=== PATIENT | male | born 1975 | race American Indian/Alaskan Native ===

== ENCOUNTER 2018-02-01 16:29 | Emergency (ER) | payer OTHER ==
[2018-02-01 16:41] VITALS: TEMP 98.7
[2018-02-01] MEDS ORDERED: Lidocaine 2% Inj (20ml) ONE (16:53)
[2018-02-01] MEDS ORDERED: Bacitracin 500 Units/gm Oint Foilpak UD ONE (16:53)
[2018-02-01] MEDS ORDERED: Tetanus/Diphtheria Toxoids 0.5 ml Syringe IM ONE (16:56)
[2018-02-01] MEDS ORDERED: Lidocaine 2% Inj (20ml) INFIL STA (16:57)
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
[2018-02-01] MEDS ORDERED: Tdap Vaccine 0.5 ml Vial (10-64 yrs) IM ONE (17:25)
[2018-02-01 17:33] VITALS: BP 160/98; PULSE 84; RESP 16; O2SAT 98
== END 2018-02-01 17:32 | disposition home or self-care (01) ==
LOC: C.ER 16:29
DX: S61.012A Laceration without foreign body of left thumb without damage to nail, initial encounter (principal); X58.XXXA Exposure to other specified factors, initial encounter; Y99.0 Civilian activity done for income or pay; I10 Essential (primary) hypertension

== ENCOUNTER 2018-05-22 20:28 | Emergency (ER) | payer OTHER ==
[2018-05-22 20:36] VITALS: BP 165/119; PULSE 70; TEMP 98.8; O2SAT 98
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
[2018-05-22 21:49] VITALS: RESP 20
--- NOTE | 2018-05-23 09:02 | RAD ---
PROCEDURE: Cervical Spine Radiographs. HISTORY: Pain. COMPARISON: None. FINDINGS: BONES: Alignment maintained. No fracture. Dens Intact. DISC SPACES: Normal. SOFT TISSUES: Normal. No prevertebral soft tissue swelling. OTHER FINDINGS: None. IMPRESSION: Normal cervical spine radiographs
== END 2018-05-22 21:48 | disposition home or self-care (01) ==
LOC: C.ER 20:28
DX: S16.1XXA Strain of muscle, fascia and tendon at neck level, initial encounter (principal); V49.9XXA Car occupant (driver) (passenger) injured in unspecified traffic accident, initial encounter; I10 Essential (primary) hypertension; Z72.0 Tobacco use